=== PATIENT | female | born 1930 | race Caucasian/White ===

== ENCOUNTER 2016-09-21 20:16 | Inpatient (IN) | payer MEDICARE ==
--- NOTE | ~2016-09-21 | EKG ---
PATIENT: CULLEN NYE UNIT #: [id number] Ventricular Rate: 70 BPM Atrial Rate: 277 BPM QRS Duration: 190 ms Q-T Interval: 478 ms QTC Calculation(Bezet): 516 ms Calculated R [place]: -129 degrees Calculated T [place]: 44 degrees Diagnosis Line: Electronic ventricular pacemaker Diagnosis Line: When compared with ECG of 21-SEP-2016 20:28, Diagnosis Line: No significant change was found Diagnosis Line: Confirmed by EBENEZER DUMAS MD ([id number]) on Diagnosis Line: 09/26/2016 5:10:03 PM INTERPRETING MD: KAT
--- NOTE | ~2016-09-21 | EKG ---
PATIENT: CULLEN NYE UNIT #: [id number] Ventricular Rate: 70 BPM Atrial Rate: 76 BPM QRS Duration: 182 ms Q-T Interval: 472 ms QTC Calculation(Bezet): 509 ms Calculated R [place]: -109 degrees Calculated T [place]: 58 degrees Diagnosis Line: Electronic ventricular pacemaker Diagnosis Line: No previous ECGs available Diagnosis Line: Confirmed by ROBER UGARTE MD ([id number]) on Diagnosis Line: 09/23/2016 8:03:31 AM INTERPRETING MD: SHANEL AHMADI
--- NOTE | ~2016-09-21 | HP ---
Unit #: [id number] #: [id number] Patient: CULLEN NYE [id number] [place], [place] [address] [id number] I MR#: [id number] NAME: CULLEN NYE ROOM: 572 Age: 86 Sex: F Admission Date: 09/22/2016 : 1930 Attending Physician: Betty Gallegos M.D. Primary Care Physician: Yash Seymour M.D. HISTORY AND PHYSICAL CHIEF COMPLAINT Acute on chronic hypoxic respiratory failure, bronchitis, bronchospasm, uncontrolled diabetes mellitus. HISTORY This very pleasant 86-year-old female with CAD, sick sinus syndrome, AODM, hypertension, was transferred from [facility] emergency department for shortness of breath. The patient is followed by Dr. Seymour, was told some time ago that she needs oxygen but was somewhat resistant according to family. Over the past three weeks, has become increasingly hoarse with nasal congestion and a deep cough productive of green sputum with worsening shortness of breath, some bronchospasm, and diaphoresis. Denies true chest pain although has been experiencing some left scapular discomfort. Became more short of breath yesterday and ultimately went to [facility] emergency department last evening where her O2 sat was as low as 85% on room air. She was noted to have wheezing on exam. She was treated with bronchodilators, given 500 mg of IV Zithromax, and six units of IV regular insulin for a serum glucose of 440. Labs were also notable for mild hyperkalemia and dehydration. A CT scan was performed really showing no acute disease. Emphysema was noted. Of note, the patient is anticoagulated with Eliquis due to her sick sinus syndrome. After the oxygen was applied, her shortness of breath improved. PAST MEDICAL HISTORY 1. CAD, status post PCI and stent according to records from [facility]. This was done around 2003. The patient was admitted to [facility] 07/2014 for chest discomfort but declined stress testing. She ruled out for an CO at that time. She is status post permanent pacemaker for sick sinus syndrome/atrial fibrillation, and is anticoagulated. 2. AODM x30 years. 3. Hyperlipidemia. 4. Hypertension. 5. Hypothyroidism. 6. What sounds to be basal cell CA requiring extensive facial surgery. 7. Cataract extraction. 8. Total abdominal hysterectomy. ALLERGIES No known drug allergies. HOME MEDICATIONS Unit #: [id number] #: [id number] Patient: CULLEN NYE 1. Atenolol 50 mg daily. 2. Lipitor 10 mg daily. 3. Eliquis 2.5 mg b.i.d. 4. Amaryl 4 mg q. a.m. 5. 70/30 Novolin, 30 units subcu q. a.m. and sliding scale Novolin t.i.d. with meals. 6. Imdur 30 mg daily. 7. Synthroid 0.1 mg daily. 8. Lisinopril 40 mg daily. 9. Magnesium 400 mg daily. 10. Potassium lphb-jwl-wgabjlz daily. 11. Dyazide 37.5/25, one and a half tablets daily. 12. Also an inhaler. FAMILY HISTORY Heart disease and lung disease. SOCIAL HISTORY The patient lives with her daughter. Daughter works two jobs. Patient stopped smoking about 40 years ago, does not drink alcohol except for an occasional beer. REVIEW OF SYSTEMS Notable for increasing shortness of breath, deep cough, permanent pacemaker, diabetes, hypertension, hyperlipidemia, hypothyroidism, CAD, skin cancer, above mentioned surgeries, cough, hoarseness, sweats. All other systems were reviewed and are otherwise negative. PHYSICAL EXAMINATION GENERAL APPEARANCE: Very pleasant, young appearing 86-year-old, obese female, who currently is in no acute distress. VITAL SIGNS: Temperature 99, pulse 69, respirations 18, blood pressure 138/88. O2 saturation was as low as 85% on room air. HEENT: Eyes PERRLA. Extraocular muscles are intact, status post cataract extraction. Pharynx is benign. NECK: Supple without adenopathy or thyromegaly. CHEST: Somewhat diminished breath sounds, end-expiratory wheeze. CARDIAC: Normal S1 and S2 without murmur. There is some slight tenderness over the left upper back. ABDOMEN: Bowel sounds are present. No hepatosplenomegaly, tenderness or masses. EXTREMITIES: Without edema. Pedal pulses are markedly diminished. No ulcers on the feet. No pedal edema. NEUROLOGIC: The patient is awake, alert, orient. Her cranial nerves are intact except that she is hard of hearing. She has equal strength throughout but is weak in her legs and needs help to stand. DIAGNOSTIC STUDIES LABORATORY: Admission labs - hematocrit 44.3, normal white count and platelet count. Negative cardiac enzymes. SMA-7 - glucose 440, BUN 35 with a creatinine of 1.4, sodium 132, potassium 5.3. BNP mildly elevated at 264. Urinalysis was negative. Unit #: [id number] #: [id number] Patient: CULLEN NYE IMAGING: Chest x-ray was abnormal but patient is obese. Therefore, a CT scan was performed. This revealed no acute findings. Emphysema. Cardiomegaly and pulmonary arterial hypertension. 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 CARDIOVASCULAR: EKG - paced rhythm, rate 70. ASSESSMENT 1. Acute on likely chronic respiratory failure: Patient's primary care physician has recommended oxygen. Patient now presents decompensated with bronchitis and bronchospasm. Her initial room air O2 saturation was 85%. 2. Bronchitis and bronchospasm. 3. Dehydration. 4. Uncontrolled type 2 diabetes mellitus. 5. Paroxysmal atrial fibrillation, status post permanent pacemaker insertion for sick sinus syndrome for which the patient is anticoagulated. 6. Hypertension. 7. Hypothyroidism. 8. Hyperlipidemia. 9. CAD, status post PCI and stent in 2003. Details are unknown. 10. Morbid obesity. PLANS 1. Discontinue oral potassium. 2. Diabetic control. 3. Small bolus of IV fluids. 4. 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 5. Zithromax pending sputum C and S. 6. Xopenex mini nebs for now. 7. No need for DVT prophylaxis as the patient is anticoagulated. Dictated by Ian Chung/blue TD: 09/22/2016 05:03 JOB #: [id number] HISTORY AND PHYSICAL Page 1 of 1 X Betty Gallegos MD HISTORY AND PHYSICAL
--- NOTE | ~2016-09-21 | CO ---
Unit #: [id number] #: [id number] Patient: CULLEN NYE [id number] [address] [address] [id number] I MR#: [id number] NAME: CULLEN NYE ROOM: 572 Age: 86 Sex: F Admission Date: 09/22/2016 : 1930 Attending Physician: Aimee Hernandez M.D. Primary Care Physician: Yash Seymour M.D. Consultation Date: 09/25/2016 CONSULTATION REPORT CHIEF COMPLAINT We were asked to see for systolic, diastolic congestive heart failure, and EKG changes. HISTORY OF PRESENT ILLNESS The patient is here with acute on chronic hypoxic respiratory failure. She states to me that for the past 3 weeks, she was having worsening shortness of air. It was associated with cough mostly just clearing the back of her throat. No fevers, no chills. She had increasing hoarseness, nasal congestion, and the cough with green sputum. The patient is somewhat vague and does not really want another consult. She states she has been seen by so many doctors and she does not want to be caught on. She denied any chest pain. No chest discomfort. It appears by review of old records that at one point in time, she was offered home O2 and she did not want that. In the [facility] Emergency Room, her oxygen saturation was found to be 85% on room air and she was wheezing. She was treated with bronchodilators and Zithromax. She was also given 6 units of regular insulin for a glucose of 440. She does have a history of arteriosclerotic heart disease with PCI and stent in 2003 as well as atrial fibrillation, on anticoagulation and sick sinus syndrome with a permanent pacemaker. PAST MEDICAL HISTORY 1. Arteriosclerotic heart disease with PCI and stent in 2003. She was readmitted to [facility] in 07/2014, she declines stress testing at that time. AK was ruled out at that time. 2. Sick sinus syndrome, atrial fibrillation with permanent pacemaker and anticoagulation, diabetes mellitus, insulin dependent for 30 years. 3. Dyslipidemia. 4. Hypertension. 5. Hypothyroidism. 6. Extensive facial surgery, which was probably basal cell carcinoma. PAST SURGICAL HISTORY 1. Cataract extraction. 2. Total abdominal hysterectomy. 3. Facial surgery for probable basal cell carcinoma. ALLERGIES No known allergies. HOME MEDICATIONS Atenolol 50 mg daily, Lipitor 10 mg daily, Eliquis 2.5 mg twice daily, Amaryl 4 mg daily, Novolin 70/30, 30 units subcu every morning and sliding scale Novolin t.i.d. with meals, Imdur 30 mg daily, Synthroid 0.1 mg Unit #: [id number] #: [id number] Patient: CULLEN NYE daily, lisinopril 40 mg daily, magnesium 400 mg daily, zlaf-syu-fkyiqya potassium daily, Dyazide 37.5/25 half tablet daily, multidose inhalers. FAMILY HISTORY Positive for heart disease and lung disease. SOCIAL HISTORY She lives with her daughter and the daughter works 2 jobs. History of tobacco use, stopped smoking over 40 years ago. No alcohol use. REVIEW OF SYSTEMS Positive for shortness of air. Positive for cough. Positive for lower extremity edema, which is worse in the summer. No chest pain. No chest pressure. All other systems were negative. PHYSICAL EXAMINATION GENERAL: Well developed, well nourished, elderly obese, 86-year-old, white female, who is currently in no acute distress. VITAL SIGNS: Temperature 98.0, afebrile total admission. She is paced with ventricular rate of 65, respirations 16, blood pressure 137/66, weight 125 kg down to 121.4 kg today, height 5 feet 6 inches, BMI 44. HEENT: Normocephalic and atraumatic. No xanthelasma. Pupils equal, round, and reactive to light. NECK: Supple. No jugular venous distention. No elevated CVP. CHEST: Clear to auscultation anteriorly and clear to auscultation posteriorly, upper lobes, otherwise very decreased with minimal air movement in bases. HEART: S1 and S2. No S3 or S4. 100% pacing. ABDOMEN: Grossly obese. Bowel sounds are present. EXTREMITIES: Mild lower extremity edema. Pulses 2+ bilaterally. NEUROLOGIC: Awake alert, and oriented x3. No facial drooping. Moving all extremities spontaneously with equal strength, but has generalized weakness and disability. DIAGNOSTIC STUDIES LABORATORY RESULTS: Chemistry; sodium 138, potassium 5.6, chloride 104, CO2 of 27, BUN 37, creatinine 1.3, glucose 131, magnesium 2.0, calcium 9.2. On admission, total CK was 98, troponin less than 0.03. Brain natriuretic peptide done on 09/21 was 264, hemoglobin A1c 11.12, free T4 of 0.83. Emergency Room point of care troponin less than 0.05. Hemoglobin 13.0, hematocrit 40.0, white blood cell count 9.4, platelet count 203. UA was negative. Cholesterol studies done in 12/2015, showed a total cholesterol of 116, triglycerides 90, LDL 51, and HDL of 47. IMAGING STUDIES: 2D echo shows an ejection fraction of 30% to 35%, moderate generalized hypokinesis of the left ventricle, keww-wl-icnuufrh concentric left ventricular hypertrophy, left ventricle size is normal, grade 3 diastolic dysfunction, E/E is 19, moderately enlarged right ventricular cavity, has kavilhmi-gs-kmsupj tricuspid regurgitation with right ventricular systolic pressure approximately 53 mmHg, no aortic stenosis, mild mitral regurgitation, left atrium is moderately dilated, no evidence of patent foramen ovale. Chest x-ray from 09/21, shows xvwvolnz-nt-lsozte cardiac enlargement. Pulmonary vasculature is abnormally prominent and indistinct consistent with underlying vascular congestion. 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 ASSESSMENT AND PLAN 1. Ischemic cardiomyopathy with ejection fraction 30% to 35%. 2. History of arteriosclerotic heart disease with percutaneous coronary intervention and stenting in 2003. 3. History of sick sinus syndrome with permanent pacemaker. 4. History of atrial fibrillation with anticoagulation. 5. Hypertension. 6. Dyslipidemia. 7. Hypothyroidism, on Synthroid. 8. Pulmonary hypertension with moderate severe tricuspid regurgitation and a right ventricular systolic pressure of 53. 9. Mild fluid volume overload with acute on chronic systolic congestive heart failure. A 12-lead EKG is consistent with 100% electronic ventricular pacemaker. We will give 1 dose of IV Bumex today, repeat chest x-ray in the a.m. Conservative management. At discharge, she will follow up with her primary care crosscutter, which is Dr. Anabel Cardenas. Recheck BNP in am. Continue to follow for any further recommendations. Dictated by... Rob Pandey.P.R.N. for S. Ian Alejandra/naren TD: 09/26/2016 04:50 JOB #: [id number] CONSULTATION REPORT Page 1 of 1 X X CONSULTATION REPORT
--- NOTE | ~2016-09-21 | BMI ---
[facility] Nutrition Therapy DATE: 09/22/16 Patient: CULLEN NYE Physician: DEEP Address: [address] [place] [address] Room/Bed: [address] [place] [address], Zip: [place] [address] Admit Date: 09/22/16 Date of : [birth year] Height: 5 6 Weight: 275 125 HIGH BMI NOTE: DX: 86 Y.O. FEMALE ADMITTED FOR HYPOXIA ANTHROPOMETRICS: 5'6", WT: 275# (125 KG), BMI: 44.4 DIET: CC+HH DIET RECOMMENDATIONS: 1. RECOMMEND TO CONTINUE CURRENT DIET ORDER ABOVE TO PROMOTE GRADUAL WEIGHT LOSS TOWARDS HEALTHY BMI (19.0-25.0) OR +/-10%IBW RD WILL F/U PER PROTOCOL Respectfully, PRATEEK BELL MS, RD, LD Food and Nutritional Services [facility] cc: client file
--- NOTE | ~2016-09-21 | CO ---
Unit #: [id number] #: [id number] Patient: CULLEN NYE [id number] [address] [place], [place] [address] [id number] I MR#: [id number] NAME: CULLEN NYE ROOM: 572 Age: 86 Sex: F Admission Date: 09/22/2016 : 1930 Attending Physician: Aimee Hernandez M.D. Primary Care Physician: Yash Seymour M.D. Consultation Date: 09/22/2016 CONSULTATION REPORT REASON FOR CONSULTATION Respiratory failure. HISTORY OF PRESENT ILLNESS 86-year-old female who has had shortness of breath for some time but it worsened. She presented to [facility] emergency room. Saturations were 85%. They were documented to be 87% here at our ER. She tells me that her family doctor has been talking to her about oxygen but she has been reluctant. She has had occasional sputum production, occasional wheezing, no chest pain, fever, palpitations or hemoptysis. PAST MEDICAL HISTORY Remarkable for coronary artery disease, diabetes, hyperlipidemia, hypertension, hypothyroidism. ALLERGIES No known medical allergies. HOME MEDICATIONS Atenolol, Lipitor, Eliquis, Amaryl, Imdur, Synthroid, lisinopril, magnesium, Dyazide. It is unclear if she is truly on any inhaled medicines. FAMILY HISTORY Vague but possible history of lung disease. SOCIAL HISTORY She smoked very little and quit 40 years ago. She is around some secondhand smoke. She lives with her daughter. REVIEW OF SYSTEMS Increasing dyspnea. No chest pain, hemoptysis, abdominal pain, melena, hematochezia, hematuria, dysuria, focal weakness, paresthesias, leg pain and swelling. She does snore. Further review of systems negative. PHYSICAL EXAMINATION GENERAL: Pleasant, obese, 86-year-old in no acute distress on oxygen. VITALS: She is afebrile, pulse 68, respiratory rate 20, blood pressure 152/82, 5'6", 275 pounds, BMI 44. HEENT: Pupils equal, round and reactive to light. Sclerae anicteric. Head atraumatic. Mucous membranes moist. Mallampati class 4 oropharynx. CHEST: Diffuse fine crackles. Mildly prolonged expiratory phase. Please note, exam is diminished by her body habitus. CARDIAC: Regular rate and rhythm. No definite murmur, rub or gallop. Unit #: [id number] #: [id number] Patient: CULLEN NYE ABDOMEN: Obese, soft and nontender. No hepatomegaly or rebound. EXTREMITIES: No clubbing, cyanosis, or edema. No calf tenderness. SKIN: Warm and dry without rash or diaphoresis. NEUROLOGIC: Grossly intact. No focal muscle or sensory deficits. DIAGNOSTIC STUDIES IMAGING STUDIES: Chest x-ray is uninterpretable. CT scan - mild emphysematous changes. She has some peripheral fibrotic changes. No pneumonia. CAT scan was performed without contrast. LABORATORY STUDIES: BUN 31, creatinine 1.0, BNP 264. Cardiac enzymes negative. CBC normal except for mildly elevated hematocrit of 45.3. Urinalysis fairly unremarkable. Sputum Gram-positive cocci, pairs, chains, clusters. A few Gram-negative rods. ID pending. CARDIOLOGY STUDIES: Rhythm strips are paced. IMPRESSION 1. Acute respiratory failure, suspect chronic component. 2. Pulmonary fibrosis to my review of the CAT scan. 3. Mild emphysema changes on CAT scan. 4. Suspect pulmonary hypertension. 5. Suspect obstructive sleep apnea. 6. Acute bronchitis. 7. Coronary artery disease, diabetes, etc. PLAN Add inhaled corticosteroids, long-acting beta-agonist. I will avoid steroids because of her diabetes if possible. She will need outpatient PFTs. She also will need outpatient nocturnal polysomnography as soon as possible, as I suspect she has very severe sleep apnea. Will check oxygenation needs but I suspect she will nee oxygen at home. Echocardiogram for LV function, RV pressures, and will try to do a bubble contrast to look for shunt, although given her body habitus, this may be difficult to perform with accuracy. Thank you very much for allowing me to participate in the care of Ms. Nye. Dictated by... Chiki Diggs M.D. SHIRA/yeni TD: 09/22/2016 12:37 JOB #: [id number] Unit #: [id number] #: [id number] Patient: CULLEN NYE CONSULTATION REPORT Page 1 of 1 X Chiki Diggs MD X CONSULTATION REPORT
--- NOTE | ~2016-09-21 | A ---
[facility] Nutrition Therapy DATE: 09/23/16 Patient: CULLEN NYE Physician: DEEP Address: [address] [place] [address] Room/Bed: [address] [place] [address], Zip: [place] [address] Admit Date: 09/22/16 Date of : 31 Height: 5 6 Weight: 275 125.1 NUTRITIONAL ASSESSMENT: REASON: CONSULT RE: DM EDUCATION HT: 5'6", WT: 275#, BMI: 44.4 RD PROVIDED WRITTEN AND VERBAL CC DIET EDUCATION. PT DEMONSTRATED UNDERSTANDING OF THE TOPIC. PT REPORTED NO DIET QUESTIONS AT THIS TIME. RD TO REMAIN AVAILABLE RECOMMENDATIONS: 1. ENCOURAGE COMPLIANCE OF CURRENT DIET ORDER-CC+ HH DIET RD WILL F/U PER PROTOCOL Respectfully, PRATEEK BELL MS, RD, LD Food and Nutritional Services [facility] cc: client file
--- NOTE | ~2016-09-21 | CR63 ---
[facility] A Service of [facility] & [facility] RADIOLOGY TEXT RESULTS PATIENT: CULLEN NYE LOCATION: [facility] 572-01 : 31 UNIT #: [id number] AGE: [address]: Aimee Hernandez MD SEX: F ORDER DR: [id number] [facility] [address] [place], [place] [address] [id number] I MR#: [id number] Acc #: [id number] NAME: CULLEN NYE : 1930 SEX: F STUDY DATE/TIME: 09/26/2016 7:39 UNIT: [facility] ROOM: [facility] STUDY DESCRIPTION: CR Chest 2 View Attending Physician: Aimee Hernandez M.D. Ordering Physician: Aimee Hernandez M.D. Primary Care Physician: Yash Seymour M.D. MEDICAL IMAGING REPORT This report is preliminary unless electronic signature is present EXAM Chest PA and lateral 09/26/2016. HISTORY Chest pain, shortness of breath, cough and chest congestion for 4 weeks. Fever, benign essential hypertension, congestive heart failure, coronary artery disease and diabetes. FINDINGS The heart is enlarged but stable compared with 09/21/2016. Cardiac pacemaker is unchanged. There is mild pulmonary vascular congestion. No airspace consolidation is seen. There are no pleural effusions. IMPRESSION Cardiomegaly and mild pulmonary vascular congestion. Dictated by... Colin Fritz M.D. THIS IS AN ELECTRONICALLY VERIFIED REPORT Colin Fritz M.D. at 09/27/2016 2:09 PM KRT/renee TD: 09/26/2016 14:03 JOB #: [id number] MEDICAL IMAGING REPORT Page 1 of 1 COPY
--- NOTE | ~2016-09-21 | CT57 ---
[facility] A Service of [facility] RADIOLOGY TEXT RESULTS PATIENT: CULLEN NYE LOCATION: [facility] [id number] : [birth year] UNIT #: [id number] AGE: [address]: Betty Gallegos MD SEX: F ORDER DR: [id number] [address] [address] [id number] MR#: [id number] Acc #: [id number] NAME: CULLEN NYE : 1930 SEX: F STUDY DATE/TIME: 09/21/2016 22:28 UNIT: SED ROOM: STUDY DESCRIPTION: CT Chest Wo Cont Attending Physician: Leon Cleaning M.D. Ordering Physician: Leon Cleaning M.D. Primary Care Physician: Yash Seymour M.D. MEDICAL IMAGING REPORT This report is preliminary unless electronic signature is present. EXAM CT chest INDICATIONS Shortness of air for 3 weeks. Increasing severity. Productive cough. TECHNIQUE CT thorax without contrast. Coronal and sagittal reconstructions were obtained. This CT exam was performed with one or more of the following radiation dose reduction techniques: automatic exposure control, adjustment of mA and/or kV according to patient size, and iterative reconstruction. COMPARISON Chest radiograph dated 09/21/[address] chest 01/01/2016. 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 Thoracic aorta is normal in caliber. The main pulmonary is dilated measuring 3.9 cm. This indicates a component of pulmonary hypertension. The heart is enlarged. There is a dual-lead cardiac pacemaker on the left chest wall. There is mild background emphysema. No focal consolidation. Central airways are patent. There is no discrete nodule in the left midlung to correlate with chest radiograph abnormality. There are a few benign calcified granulomas. No acute osseous abnormalities. [facility] A Service [facility] RADIOLOGY TEXT RESULTS PATIENT: CULLEN NYE [facility] [id number] : [birth year] UNIT #: [id number] AGE: [address]: Betty Gallegos MD SEX: F ORDER DR: IMPRESSION 1. No acute findings in the chest. 2. Emphysema. 3. Cardiomegaly and pulmonary arterial hypertension. 4. 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 Dictated by... Ken Zamora M.D. THIS IS AN ELECTRONICALLY VERIFIED REPORT Ken Zamora M.D. at 09/22/2016 1:06 AM SHYAM/agus TD: 09/22/2016 00:09 JOB #: [id number] MEDICAL IMAGING REPORT Page 1 of 1
--- NOTE | ~2016-09-21 | CR72 ---
[facility] A Service of [facility] RADIOLOGY TEXT RESULTS PATIENT: CULLEN NYE LOCATION: [place] [address] : [birth year] UNIT #: [id number] AGE: [address]: Aimee Hernandez MD SEX: F ORDER DR: [id number] [address] [address] [id number] MR#: [id number] Acc #: [id number] NAME: CULLEN NYE : 1930 SEX: F STUDY DATE/TIME: 09/21/2016 20:59 UNIT: SED ROOM: STUDY DESCRIPTION: CR Chest Single View Portable Attending Physician: Leon Cleaning M.D. Ordering Physician: Leon Cleaning M.D. Primary Care Physician: Yash Seymour M.D. MEDICAL IMAGING REPORT This report is preliminary unless electronic signature is present. EXAM AP radiograph of the chest, 09/21/2016. HISTORY Short of air. 3 weeks duration. Worse today. Cough, congestion. Prior history of coronary artery disease, diabetes, CHF. COMPARISON 12/25/2015. Comparison also made to chest CT 01/01/2016. FINDINGS Cardiac pacemaker unchanged. Moderate to marked cardiac enlargement unchanged. Pulmonary vasculature abnormally prominent and indistinct consistent with underlying vascular congestion. Abnormally increased interstitial and airspace densities, extending from the central lung zones peripherally in the bilateral [id number] lungs. The appearance favors cardiogenic pulmonary edema with interstitial and airspace components. I cannot exclude bilateral pleural effusions. Study is somewhat limited secondary to soft tissue attenuation related to the patient's large body habitus. There is no pneumothorax. No suspicious nodule suggested. Dictated by... Leon Hopper M.D. THIS IS AN ELECTRONICALLY VERIFIED REPORT Leon Hopper M.D. at 09/22/2016 4:47 PM eLnin TD: 09/21/2016 23:25 JOB #: [id number] [facility] A Service of [facility] RADIOLOGY TEXT RESULTS PATIENT: CULLEN NYE LOCATION: [facility] 572-01 : 31 UNIT #: [id number] AGE: [address]: Aimee Hernandez MD SEX: F ORDER DR: MEDICAL IMAGING REPORT Page 1 of 1
--- NOTE | ~2016-09-21 | DS ---
Unit #: [id number] #: [id number] Patient: CULLEN NYE [id number] [address] [place], [place] [address] [id number] MR#: [id number] NAME: CULLEN NYE ROOM: 572 Age: 86 Sex: F Admission Date: 09/22/2016 : 1930 Discharge Date: 09/26/2016 Attending Physician: Aimee Hernandez M.D. Primary Care Physician: Yash Seymour M.D. DISCHARGE SUMMARY REASON FOR ADMISSION Acute on chronic hypoxic respiratory failure, bronchospasm, poorly controlled diabetes. HISTORY OF PRESENT ILLNESS/HOSPITAL COURSE The patient is a very pleasant 86-year-old female with underlying history of coronary artery disease, sick sinus syndrome, diabetes type 2, hypertension, was transferred from [facility] secondary to dyspnea. Initially, she was noted to be 85% on room air. Significant wheezing was also noted. She was appropriately treated with IV antibiotics, Solu-Medrol, as well as, aerosols. CT chest without contrast was performed September 21, 2016, after initial chest x-ray did show any acute findings. This too was normal. BNP was noted to be mildly elevated at 264, secondary to prior history of systolic heart failure. Consultation was placed to Dr. Scales and associates from cardiology. Patient received IV diuresis while here. Patient also underwent 2D echocardiogram this hospital admission which did show grade 3 diastolic dysfunction, systolic heart failure with an estimated ejection fraction of 30% to 35%, moderate generalized hypokinesis was also noted, moderately enlarged right ventricle was also noted. After IV diuresis, this was transitioned into p.o. Bumex. Pulmonary services were also consulted. Dr. Diggs and associates evaluated patient. They did make a recommendation for ongoing pulmonary management to which they followed with aerosol Solu-Medrol which was eventually transitioned into p.o. medication. Both services have now signed off. Patient currently is on 2 L O2 via nasal cannula. This will be attempted to be weaned prior to discharge. Physical and occupational therapy services have seen and evaluated patient. Both services have made a recommendation for rehab placement at time of discharge. Appropriate arrangements will be made later this afternoon for her to be transitioned there. O2 evaluation will be done prior to discharge. Overall, patient's long-term prognosis is guarded at best secondary to associated co-morbid conditions as well as prior history of end-stage COPD. Unit #: [id number] #: [id number] Patient: CULLEN NYE FINAL DISCHARGE DIAGNOSES 1. Dyspnea, multifactorial in origin. 2. Acute on chronic respiratory failure, likely O2 dependent. 3. Acute on chronic systolic heart failure with ejection fraction 30% to 35%. 4. Acute on chronic diastolic heart failure. 5. Ibetdsah-bg-ypgdcd tricuspid regurgitation. 6. Pulmonary hypertension. 7. Likely obstructive sleep apnea with noncompliance. 8. Sick sinus syndrome with prior history of pacemaker placement. 9. Atrial fibrillation on chronic anticoagulation with Eliquis. 10. Coronary artery disease, status post stents in past. 11. Hypertension. 12. Diabetes. 13. Chronic immobility syndrome. 14. Obesity. 15. Hypothyroidism. FINAL DISCHARGE MEDICATIONS 1. Imdur 30 mg p.o. daily. 2. Synthroid 100 mcg p.o. daily. 3. Amaryl 4 mg p.o. q.a.m. with breakfast. 4. Bumex 2 mg p.o. q.a.m. 5. Lipitor 20 mg p.o. nightly. 6. Zestril 10 mg p.o. daily. 7. NovoLog low-dose insulin sliding scale with insulin and Accu-Cheks q.a.c. and nightly. 8. Levemir 15 units subcutaneous b.i.d. 9. Florastor 250 mg p.o. b.i.d. 10. Protonix 40 mg p.o. daily. 11. Tylenol 650 mg p.o. q.6 p.r.n. 12. Mag-Ox 400 mg p.o. daily. 13. Eliquis 2.5 mg p.o. b.i.d. 14. Coreg 6.25 mg p.o. b.i.d. 15. Dulera 200/5 two puffs b.i.d. DISCHARGE CONDITION Stable. DISCHARGE DISPOSITION Rehab for ongoing care. PROGNOSIS Long-term prognosis of this patient is guarded. Dictated by... Ian Barajas TD: 09/26/2016 11:13 JOB #: [id number] Unit #: [id number] #: [id number] Patient: CULLEN NYE R DISCHARGE SUMMARY Page 1 of 1 X Aimee Hernandez MD X DISCHARGE SUMMARY
[2016-09-21] MEDS ORDERED: ELIQUIS5 MG (20:44)
[2016-09-21] MEDS ORDERED: ATENOLOL50 MG (20:44)
[2016-09-21] MEDS ORDERED: LIPITOR40 MG (20:44)
[2016-09-21] MEDS ORDERED: GLIMEPIRIDE2 MG PO (20:45)
[2016-09-21] MEDS ORDERED: HUMULIN N100 UNIT/2 (20:45)
[2016-09-21] MEDS ORDERED: TIROSINT100 MCG PO (20:46)
[2016-09-21] MEDS ORDERED: MAG-OX 400400 MG (20:46)
[2016-09-21] MEDS ORDERED: ISOSORBIDE MONO30 MG PO (20:46)
[2016-09-21] MEDS ORDERED: ZESTRIL40 MG PO (20:46)
[2016-09-21] MEDS ORDERED: DYAZIDE 371 CAP 37.5 (20:47)
[2016-09-21] MEDS ORDERED: EFFER-K 20 MEQ20 MEQ PO (20:47)
[2016-09-21 21:05] LABS: BASOPHIL# 0.1 X10e3 (0-0.3); BASOPHIL% 0.7 % (0-2.5); EOSINOPHIL# 0.2 X10e3 (0-0.7); EOSINOPHIL% 2.2 % (0.0-7.0); HEMATOCRIT 44.3 % (35.0-45.0); HEMOGLOBIN 14.5 gm/dL (12.0-16.0); LYMPHOCYTE# 2.8 X10e3 (1.0-3.5); MEAN CELL VOLUME 99.8 FL (83-96); MEAN CORPUSCULAR HEMOGLOBIN 32.6 PG (28-34); MEAN CORPUSCULAR HGB CONC 32.7 g/dL (30-36); MEAN PLATELET VOLUME 9.2 FL (6.5-11.5); MONOCYTE# 0.9 X10e3 (0-1.0); MONOCYTE% 8.7 % (3.0-12.0); NEUTROPHIL% 60.4 % (40-75); PLATELET COUNT 216 X10e3 (140-420); RED BLOOD COUNT 4.44 X10e (3.90-5.30); RED CELL DISTRIBUTION WIDTH 13.5 % (11.0-15.5); WHITE BLOOD COUNT 9.9 X10e3 (4.0-10.5)
[2016-09-21 21:06] LABS: DIFF IND NO
[2016-09-21 21:20] LABS: POC - CKMB 2.1 ng/mL (0.0-7.9); POC - TROPONIN <0.05 ng/mL (<=0.05)
[2016-09-21 21:22] LABS: CALCIUM SERUM 9.1 mg/dL (8.4-10.2); CREATININE SERUM 1.4 mg/dL (0.6-1.4); GLOM FILT RATE Estimated 34.2 mL/min (>60); POTASSIUM 5.3 mmol/L (3.5-5.1)
[2016-09-21 23:55] LABS: URINE SOURCE CLEAN CATCH
[2016-09-22 00:02] LABS: MICRO INDICATED? YES; URINE APPEARANCE CLEAR; URINE BILIRUBIN NEG (NEG); URINE BLOOD TRACE-LYSED (NEG); URINE COLOR YELLOW; URINE GLUCOSE 300 MG/DL (NORM); URINE KETONE NEG (NEG); URINE LEUKOCYTE ESTERASE NEG (NEG); URINE NITRATE NEG (NEG); URINE PROTEIN NEG (NEG)
[2016-09-22 00:03] LABS: CULTURE INDICATED? NO; URINE BACTERIA NEG (NEG); URINE MUCUS PRESENT; URINE SQUAMOUS EPITHELIAL CELL FEW /[HPF]; URINE WBC 0-2 /[HPF] (0-5)
[2016-09-22 07:18] LABS: BASOPHIL# 0.1 X10e3 (0-0.3); BASOPHIL% 0.8 % (0-2.5); EOSINOPHIL# 0.2 X10e3 (0-0.7); HEMATOCRIT 45.3 % (35.0-45.0); HEMOGLOBIN 14.8 gm/dL (12.0-16.0); LYMPHOCYTE# 2.4 X10e3 (1.0-3.5); LYMPHOCYTE% 24.4 % (17.0-45.0); MEAN CELL VOLUME 99.7 FL (83-96); MEAN CORPUSCULAR HEMOGLOBIN 32.7 PG (28-34); MEAN CORPUSCULAR HGB CONC 32.8 g/dL (30-36); MEAN PLATELET VOLUME 9.2 FL (6.5-11.5); MONOCYTE# 0.8 X10e3 (0-1.0); MONOCYTE% 8.5 % (3.0-12.0); NEUTROPHIL# 6.4 X10e3 (1.5-7.1); NEUTROPHIL% 64.3 % (40-75); PLATELET COUNT 210 X10e3 (140-420); RED BLOOD COUNT 4.54 X10e (3.90-5.30); RED CELL DISTRIBUTION WIDTH 13.2 % (11.0-15.5); WHITE BLOOD COUNT 9.9 X10e3 (4.0-10.5)
[2016-09-22 07:23] LABS: DIFF IND NO
[2016-09-22 08:15] LABS: BUN/CREATININE RATIO 25.83; CALCIUM SERUM 9.2 mg/dL (8.4-10.2); CREATININE SERUM 1.2 mg/dL (0.6-1.4); GLOM FILT RATE Estimated 41.2 mL/min (>60); POTASSIUM 4.7 mmol/L (3.5-5.1)
[2016-09-22 10:03] LABS: %MB 4.7 % (0.0-4.0); MB 4.6 ng/ml
[2016-09-23 06:07] LABS: HEMATOCRIT 44.6 % (35.0-45.0); HEMOGLOBIN 14.5 gm/dL (12.0-16.0); MEAN CELL VOLUME 99.8 FL (83-96); MEAN CORPUSCULAR HEMOGLOBIN 32.4 PG (28-34); MEAN CORPUSCULAR HGB CONC 32.5 g/dL (30-36); MEAN PLATELET VOLUME 9.1 FL (6.5-11.5); RED BLOOD COUNT 4.47 X10e (3.90-5.30); RED CELL DISTRIBUTION WIDTH 13.5 % (11.0-15.5); WHITE BLOOD COUNT 11.3 X10e3 (4.0-10.5)
[2016-09-23 06:51] LABS: BUN/CREATININE RATIO 23.57; CALCIUM SERUM 9.1 mg/dL (8.4-10.2); CREATININE SERUM 1.4 mg/dL (0.6-1.4); GLOM FILT RATE Estimated 34.2 mL/min (>60); MAGNESIUM 1.9 mg/dL (1.6-3.0); POTASSIUM 5.3 mmol/L (3.5-5.1)
[2016-09-23 12:44] LABS: THYROID STIMULATING HORMONE 2.12 uIU/ml (0.34-5.60)
[2016-09-23 12:51] LABS: FREE THYROXIN (T4) 0.83 ng/dL (0.58-1.64)
[2016-09-24 05:11] LABS: HEMATOCRIT 42.7 % (35.0-45.0); MEAN CELL VOLUME 99.6 FL (83-96); MEAN CORPUSCULAR HEMOGLOBIN 32.7 PG (28-34); MEAN CORPUSCULAR HGB CONC 32.8 g/dL (30-36); MEAN PLATELET VOLUME 8.8 FL (6.5-11.5); RED BLOOD COUNT 4.28 X10e (3.90-5.30); RED CELL DISTRIBUTION WIDTH 13.1 % (11.0-15.5)
[2016-09-24 05:53] LABS: BUN/CREATININE RATIO 26.42; CALCIUM SERUM 8.9 mg/dL (8.4-10.2); CREATININE SERUM 1.4 mg/dL (0.6-1.4); GLOM FILT RATE Estimated 34.2 mL/min (>60); POTASSIUM 5.3 mmol/L (3.5-5.1)
[2016-09-25 04:09] LABS: ARTERIAL BLD GAS O2 SATURATION 97.1 % (90.0-100.0); ARTERIAL BLOOD GAS CARBOXY HB 0.8 %sat (0.0-9.0); ARTERIAL BLOOD GAS HCO3 24.9 mmol/L; ARTERIAL BLOOD GAS MET HB 0.4 %sat (0.0-2.0); ARTERIAL BLOOD GAS PCO2 49.2 mmHg (35.0-45.0); ARTERIAL BLOOD GAS pH 7.312 (7.350-7.450)
[2016-09-25 04:11] LABS: ARTERIAL DRAW? YES
[2016-09-25 04:12] LABS: ARTERIAL BLOOD GAS ALLEN TEST Y; ARTERIAL BLOOD GAS ART SITE LEFT RADIAL
[2016-09-25 05:27] LABS: MEAN CELL VOLUME 99.7 FL (83-96); MEAN CORPUSCULAR HEMOGLOBIN 32.5 PG (28-34); MEAN CORPUSCULAR HGB CONC 32.6 g/dL (30-36); MEAN PLATELET VOLUME 8.8 FL (6.5-11.5); RED BLOOD COUNT 4.01 X10e (3.90-5.30); RED CELL DISTRIBUTION WIDTH 13.3 % (11.0-15.5); WHITE BLOOD COUNT 9.4 X10e3 (4.0-10.5)
[2016-09-25 06:01] LABS: BUN/CREATININE RATIO 28.46; CALCIUM SERUM 9.2 mg/dL (8.4-10.2); CREATININE SERUM 1.3 mg/dL (0.6-1.4); GLOM FILT RATE Estimated 37.4 mL/min (>60)
[2016-09-25 06:05] LABS: POTASSIUM 5.6 mmol/L (3.5-5.1)
[2016-09-25 15:58] LABS: BUN/CREATININE RATIO 23.33; CALCIUM SERUM 9.1 mg/dL (8.4-10.2); CREATININE SERUM 1.5 mg/dL (0.6-1.4); GLOM FILT RATE Estimated 31.5 mL/min (>60)
[2016-09-25 15:59] LABS: POTASSIUM 5.4 mmol/L (3.5-5.1)
[2016-09-25 21:29] LABS: BUN/CREATININE RATIO 23.75; CALCIUM SERUM 8.9 mg/dL (8.4-10.2); CREATININE SERUM 1.6 mg/dL (0.6-1.4); GLOM FILT RATE Estimated 29.1 mL/min (>60)
[2016-09-26 06:11] LABS: HEMATOCRIT 38.8 % (35.0-45.0); MEAN CELL VOLUME 98.1 FL (83-96); MEAN CORPUSCULAR HEMOGLOBIN 32.9 PG (28-34); MEAN CORPUSCULAR HGB CONC 33.6 g/dL (30-36); MEAN PLATELET VOLUME 8.7 FL (6.5-11.5); RED BLOOD COUNT 3.96 X10e (3.90-5.30); RED CELL DISTRIBUTION WIDTH 13.2 % (11.0-15.5); WHITE BLOOD COUNT 8.2 X10e3 (4.0-10.5)
[2016-09-26 06:49] LABS: BUN/CREATININE RATIO 25.71; CALCIUM SERUM 8.7 mg/dL (8.4-10.2); CREATININE SERUM 1.4 mg/dL (0.6-1.4); GLOM FILT RATE Estimated 34.2 mL/min (>60); MAGNESIUM 1.9 mg/dL (1.6-3.0); POTASSIUM 4.2 mmol/L (3.5-5.1)
== END 2016-09-26 18:59 | DRG 291 ==
LOC: SED 20:16 → SEDOF 09-22 00:42 → C5C 09-22 02:37 → SEDOF 09-22 03:40 → C5C 09-22 03:40 → SED 09-22 03:40 → C5C 09-22 03:40
PROVIDERS: Emergency Medicine; Family Medicine; Family Medicine Sleep Medicine; Internal Medicine; Nurse Practitioner
DX: I11.0 Hypertensive heart disease with heart failure (principal); J96.21 Acute and chronic respiratory failure with hypoxia; E11.65 Type 2 diabetes mellitus with hyperglycemia; I27.2 Other secondary pulmonary hypertension; Z68.41 Body mass index [BMI] 40.0-44.9, adult; E86.0 Dehydration; I48.91 Unspecified atrial fibrillation; E87.5 Hyperkalemia; E66.2 Morbid (severe) obesity with alveolar hypoventilation; I07.1 Rheumatic tricuspid insufficiency; E78.5 Hyperlipidemia, unspecified; Z98.49 Cataract extraction status, unspecified eye; Z90.710 Acquired absence of both cervix and uterus; I25.5 Ischemic cardiomyopathy; I25.10 Atherosclerotic heart disease of native coronary artery without angina pectoris; Z95.5 Presence of coronary angioplasty implant and graft; J20.9 Acute bronchitis, unspecified; Z87.891 Personal history of nicotine dependence; I50.43 Acute on chronic combined systolic (congestive) and diastolic (congestive) heart failure
CPT/HCPCS: 36415; 36600; 71010; 71020; 71250; 80048; 81003; 82550; 82553; 82803; 82947; 83036; 83735; 83880; 84439; 84443; 84484; 85025; 85027; 87070; 87205; 93005; 93306; 94640; 94760; 96374; 97162; 97166; 97530; 99285; C9113; G8978-GP; G8979-GP; G8987-GO; G8988-GO; J0456; J1815; J2405